=== PATIENT | female | born 1995 | race Caucasian/White ===

== ENCOUNTER → 2019-12-02 | Outpatient (REF) | payer OTHER | LOC: M LAB REF 15:43 | PROVIDERS: ATTEND Physician Assistant | DX: Z20.828 Contact with and (suspected) exposure to other viral communicable diseases (principal); Z11.59 Encounter for screening for other viral diseases ==

== ENCOUNTER → 2020-02-08 | Outpatient (CLI) | payer OTHER ==
[~2020-02-08] MED LIST: PREN1CHW6 PO
--- NOTE | 2020-02-17 15:45 | REP ---
FOCUSED RIGHT BREAST SONOGRAPHY HISTORY: Right breast lump. SONOGRAPHIC FINDINGS: Scanning through the area of the palpable lump in the right breast inferolateral subareolar region demonstrates a 0.7 x 0.7 x 0.4 cm simple cyst. This is located 2 cm from the nipple. No suspicious sonographic features. IMPRESSION: BI-RADS Category 2 benign findings. Clinical follow-up is advised. NICOLE
== END ==
LOC: M WHC 08:54
PROVIDERS: ATTEND Nurse Practitioner Women's Health
DX: N63.10 Unspecified lump in the right breast, unspecified quadrant (principal)

== ENCOUNTER 2020-04-05 15:26 | Emergency (ER) | payer OTHER ==
[~2020-04-05] VITALS: Ht 167.6 cm; Wt 66.3 kg
[2020-04-05] MEDS ORDERED: PREN1CHW6 PO (15:34)
[2020-04-05 16:58] LABS: BASO % 0.5 % (0.0-1.0); EOS # 0.1 10^3/uL (0.0-0.5); EOS % 0.8 % (0.0-3.0); HEMATOCRIT 36.9 % (36.0-47.0); HEMOGLOBIN 12.4 g/dl (12.0-15.5); LYMPH # 2.3 10^3/uL (1.5-5.0); LYMPH % 29.7 % (24.0-44.0); MEAN CORPUSCULAR HEMOGLOBIN 29.3 pg (27.0-33.0); MEAN CORPUSCULAR HGB CONC 33.6 g/dl (32.0-36.5); MEAN CORPUSCULAR VOLUME 87.2 fl (80.0-96.0); MONO # 0.3 10^3/uL (0.0-0.8); MONO % 4.5 % (0.0-5.0); NEUTROPHILS # 4.9 10^3/uL (1.5-8.5); NEUTROPHILS % 64.2 % (36.0-66.0); PLATELET COUNT, AUTOMATED 242 10^3/uL (150-450); RED BLOOD COUNT 4.23 10^6/uL (4.00-5.40); WHITE BLOOD COUNT 7.6 10^3/uL (4.0-10.0)
--- NOTE | 2020-04-05 17:07 | REPVR ---
PROCEDURE INFORMATION: Exam: US First Trimester, Transabdominal and US , Transvaginal Exam date and time: 04/05/2020 4:47 PM Age: 24 years old Clinical indication: Other: Pelvic pain; Gestational age or lmp: 5wks; ; Additional info: Left pelvic pain, approx 5 weeks TECHNIQUE: Imaging protocol: Real-time transabdominal obstetrical ultrasound of the maternal pelvis and a first trimester , less than 14 weeks 0 days, with image documentation. Transvaginal imaging was used for better evaluation of the fetus, adnexa, and/or cervix. COMPARISON: No relevant prior studies available. FINDINGS: Gestation: Single intrauterine gestational sac. Yolk sac 2 mm mm. Embryo not identified. Embryonic/ heart rate: Heart rate: No intrauterine cardiac activity identified. Placenta: 4.9 x 5.8 x 11.6 mm hypoechoic subchorionic fluid collection. Amniotic fluid: Amniotic fluid is normal for gestational age. BIOMETRY: Gestational age (AUA): 5 weeks 2 days. Mean sac diameter: 5 weeks 2 days. MATERNAL: Uterus: Anteverted anteflexed. Uterus 7.0 x 3.7 x 5.9 cm transabdominally; 7.4 x 3.7 x 5.1 cm transvaginally. Small superior uterine cavity fluid collection by transabdominal imaging (incomplete urinary bladder distension). Cervix: Unremarkable. Right adnexa: Right ovary 2.8 cm transabdominally; 1.8 x 2.6 x 3.1 cm transvaginally. 1.7 cm right ovarian homogeneous medium G echogenicity structure with internal blood flow (series 1, image 58) consistent with a collapsed corpus luteum. Right ovarian arterial and venous flow documented. Left adnexa: Left ovary not clearly identified by transabdominal imaging. Left ovary 1.4 x 2.6 x 1.9 cm transvaginally. Normal arterial and venous color and pulsed Doppler. Intraperitoneal space: No intraperitoneal free fluid. IMPRESSION: Single intrauterine gestational sac. Embryo not identified. Small subchorionic hemorrhage. A 1 week follow-up is recommended to document viability. Electronically signed by: Carson Schultz On 04/05/2020 17:06:49 PM
[2020-04-05 18:20] VITALS: BP 127/88
== END 2020-04-05 18:21 | disposition home or self-care (01) ==
LOC: M ED 15:26
DX: O46.90 Antepartum hemorrhage, unspecified, unspecified trimester (principal); O26.899 Other specified pregnancy related conditions, unspecified trimester; R10.2 Pelvic and perineal pain; Z3A.01 Less than 8 weeks gestation of pregnancy; Z79.899 Other long term (current) drug therapy

== ENCOUNTER → 2021-06-01 | Outpatient (CLI) | payer OTHER ==
[2021-06-01 10:59] LABS: HEMATOCRIT 40.3 % (36.0-47.0); HEMOGLOBIN 13.4 g/dl (12.0-15.5); MEAN CORPUSCULAR HEMOGLOBIN 29.1 pg (27.0-33.0); MEAN CORPUSCULAR HGB CONC 33.3 g/dl (32.0-36.5); MEAN CORPUSCULAR VOLUME 87.4 fl (80.0-96.0); PLATELET COUNT, AUTOMATED 257 10^3/uL (150-450); RED BLOOD COUNT 4.61 10^6/uL (4.00-5.40); WHITE BLOOD COUNT 8.5 10^3/uL (4.0-10.0)
[2021-06-01 12:59] LABS: ALBUMIN 4.3 GM/DL (3.2-5.2); ALT/SGPT 17 U/L (12-78); BILIRUBIN,TOTAL 0.6 MG/DL (0.2-1.0); BLOOD UREA NITROGEN 14 MG/DL (7-18); CALCIUM LEVEL 9.3 MG/DL (8.5-10.1); CARBON DIOXIDE LEVEL 30 MEQ/L (21-32); CHLORIDE LEVEL 107 MEQ/L (98-107); CREATININE FOR GFR 0.71 MG/DL (0.55-1.30); FREE T4 1.06 NG/DL (0.76-1.46); GLOMERULAR FILTRATION RATE > 60.0 (>60); GLUCOSE, FASTING 80 MG/DL (70-100); POTASSIUM SERUM 4.2 MEQ/L (3.5-5.1); SODIUM LEVEL 142 MEQ/L (136-145); THYROID STIMULATING HORMONE 0.798 uIU/ML (0.358-3.740); TOTAL 25(OH) VITAMIN D 36.6 NG/ML (30.0-100.0); TOTAL PROTEIN 7.1 GM/DL (6.4-8.2)
== END ==
LOC: M PLALAB 08:42
PROVIDERS: ATTEND Nurse Practitioner Adult Health
DX: Z00.00 Encounter for general adult medical examination without abnormal findings (principal); Z83.3 Family history of diabetes mellitus; Z13.29 Encounter for screening for other suspected endocrine disorder; Z13.21 Encounter for screening for nutritional disorder

== ENCOUNTER → 2021-12-14 | Outpatient (REF) | payer OTHER | LOC: M SFHCDERM 16:20 | PROVIDERS: ATTEND Nurse Practitioner Family | DX: D48.9 Neoplasm of uncertain behavior, unspecified (principal); D22.71 Melanocytic nevi of right lower limb, including hip ==

== ENCOUNTER → 2022-03-15 | Outpatient (RCR) | payer OTHER | LOC: M PT 13:47 | PROVIDERS: ATTEND Nurse Practitioner Family | DX: M25.561 Pain in right knee (principal) ==

== ENCOUNTER 2022-04-04 10:00 | Outpatient (RCR) | payer OTHER | END 2022-04-15 23:59 | disposition home or self-care (01) | LOC: M PT 10:00 | PROVIDERS: ATTEND Nurse Practitioner Family | DX: M25.561 Pain in right knee (principal) ==

== ENCOUNTER → 2022-05-15 | Outpatient (RCR) | payer OTHER | LOC: M PT 04-17 16:45 | PROVIDERS: ATTEND Nurse Practitioner Family | DX: M25.561 Pain in right knee (principal) ==

== ENCOUNTER 2022-05-28 15:13 | Outpatient (RCR) | payer OTHER | END 2022-06-15 | LOC: M PT 15:13 | PROVIDERS: ATTEND Nurse Practitioner Family | DX: M25.561 Pain in right knee (principal) ==